=== PATIENT | male | born 1985 | race Caucasian/White ===

== ENCOUNTER 2016-06-03 23:18 | Inpatient (IN) | payer OTHER ==
--- NOTE | ~2016-06-03 | PA ---
Unit #: [id number] #: [id number] Patient: DAVID JOHNSON [id number] [facility] [place] [address] [id number] I MR#: [id number] NAME: DAVID JOHNSON. ROOM: P211 Age: 30 Sex: M Admission Date: 06/03/2016 : 1985 Date of Assessment: 06/04/2016 Attending Physician: Gumaro Turcios M.D. Admitting Physician: Gumaro Turcios M.D. Primary Care Physician: Primary Care Physician No PSYCHIATRIC ASSESSMENT LOCATION [facility], [address] [address], room #211, bed #1. DATE OF SERVICE 06/04/2016. INFORMANT The patient and chart seems more reliable than patient at this point because of the patient's sedation. HISTORY OF PRESENT ILLNESS This is a 30-year-old white male who has a longstanding history of daily opiate, heroin, and benzodiazepine abuse. He reports using 1 to 2 g of IV heroin a day as well as 8 mg of Xanax a day every day for at least last 4 years. The patient has been through multiple treatment programs with moderate withdrawal symptoms. He denied any acute mood issues right now, but he said he reports feeling very fatigue, tired, headache, aches, and pains and beyond that was of little more aid he noted on several times during the conversation, I had to be physically shaken to awaken. He was pleasant though despite all this, the patient reports he is motivated for treatment at this time, but was limited as overall capacity to cooperate. PAST PSYCHIATRIC HISTORY According to the patient, he has never been treated for any mood disorders or any thing of natures. Never been on psychiatric medications, has no history of SI, HI, or psychosis lately. FAMILY HISTORY The patient denied anything of consequence. SOCIAL HISTORY The patient was limited in his cooperation, was unclear about support network, current outstanding living situation or employment. MEDICAL HISTORY The patient denied anything of consequence. MEDICATION HISTORY The patient is not on any home medications. ALLERGIES Included no known drug allergies. Unit #: [id number] #: [id number] Patient: DAVID JOHNSON SUBSTANCE ABUSE HISTORY As noted above with various psychiatric treatment as noted. It is unclear about accuracy of report or other potential substances given the patient's limited ability to cooperate at this time. MENTAL STATUS EXAMINATION General appearance is a limitedly groomed, bearded white male who appeared much older than stated age, moderate cooperation, responsiveness at best. Speech was clear and coherent with prosody. Mood was sedated with a congruent affect. Thought process and content were grossly organized and linear, but limited overall capacity to be evaluated. No active SI, HI, or psychosis. The patient's memory was grossly intact, although evaluation was limited. He was alert and oriented x4. Cognitive function seems to be at baseline and sedated, associations being normal. Insight and judgment were poor regarding his substance abuse. ASSETS Include previous exposure to CD treatment Liabilities; uncertainty about an appointment support network; and continued substance abuse. ADMITTING DIAGNOSES 1. Opiate dependency with withdrawal. 2. Sedative hypnotic dependency with withdrawal. PSYCHIATRIC PLAN To continue the patient's admission in a safe controlled environment for detox from both opiates and benzodiazepine. Detox protocol was in place for both as well as standard p.r.n. with labs all of which are still pending. With treatment goal being resolution of the symptoms in a safe and controlled environment, discharge planning most likely including community resources once the patient is appropriate. Dictated by... Jena Alvarado/reyes TD: 06/04/2016 15:48 JOB #: [id number] PSYCHIATRIC ASSESSMENT Page 1 of 1 X Gumaro Turcios MD X PSYCHIATRIC ASSESSMENT
--- NOTE | ~2016-06-03 | PN ---
Unit #: [id number] #: [id number] Patient: DAVDI JOHNSON [id number] [facility] [address] [place] [address] [id number] I MR#: [id number] NAME: DAVID JOHNSON. ROOM: P211 Age: 30 Sex: M Admission Date: 06/03/2016 : 1985 Attending Physician: Gumaro Turcios M.D. Admitting Physician: Gumaro Turcios M.D. Primary Care Physician: Primary Care Physician No YOSEF PROGRESS NOTES DATE 06/05/2016 SUBJECTIVE UPDATE This is a 30-year-old male here with issues of ongoing significant detox including issues with opiates and benzodiazepine abuse. Today, patient reports feeling somewhat better. He is still noticing issues with sleep disturbance, some anxiety, depression, aches, pains, especially restlessness in his legs and twitching and discomfort there, some GI discomfort. Tremors were better today with less diaphoresis. Overall, patient's vital signs look stable at the moment with treatment. MENTAL STATUS EXAMINATION General appearance, limitedly groomed white male appears older than stated age fairly cooperative, responsive to interview process. Speech is clear and coherent with normal prosody. Mood is "not great" with a congruent affect. Thought process and content are grossly organized, and liner. No overt psychosis, no SI, no HI reported at this time. Patient's memory was grossly intact. Associations were normal. Cognitive functioning was at baseline. He is alert and oriented times four. Insight and judgement seems to be limited but improving. RECOMMENDATIONS Will continue patient's admission for safety and stabilization for ongoing issues with detox from benzodiazepines and opiates and will replace patient's trazodone at bedtime with Seroquel 50 mg to help with sleep and mood issues in a cathartic manner than trazodone has been able to provide. Patient still needs further stabilization from the detox process and will monitor for symptoms progress from those noted above. Dictated by... Gumaro Turcios M.D. IVONNE/tiarra TD: 06/06/2016 18:40 JOB #: [id number] Unit #: [id number] #: [id number] Patient: DAVID JOHNSON PROGRESS NOTES Page 1 of 1 X Gumaro Turcios MD PROGRESS NOTE
--- NOTE | ~2016-06-03 | PN ---
Unit #: [id number] #: [id number] Patient: DAVID JOHNSON [id number] [place] [address] [id number] I MR#: [id number] NAME: DAVID JOHNSON. ROOM: P211 Age: 30 Sex: M Admission Date: 06/03/2016 : 1985 Attending Physician: Gumaro Turcios M.D. Admitting Physician: Gumaro Turcios M.D. Primary Care Physician: Primary Care Physician No [facility] PROGRESS NOTES DATE OF SERVICE: 06/06/2016 LOCATION [facility], [address] [place] [address], room #211, bed #1. SUBJECTIVE This is a 30-year-old male who is here with ongoing issues of detox. The patient complains feeling somewhat better today, but reported very poor night sleep, even with change to Seroquel, tossing and turning, leg pains, cramps, some anxiety. He reports tremors and GI disturbances are much improved. No active SI. MENTAL STATUS EXAMINATION General appearance was so limitedly groomed white male, older than stated age, fairly pleasant, cooperative with good eye contact. Speech was clear and coherent with prosody. Mood was "somewhat better" with a congruent affect. Thought process and content are grossly organized and linear. No overt evidence of psychosis. No active SI or HI at this time. The patient's memory was grossly intact. Associations were normal. Cognitive function was at baseline. Insight and judgment are improving. RECOMMENDATIONS The patient with plan of continuing admission for safety and stabilization for resolving detox issues. Overall, the patient making good progress. We will continue to monitor to maximize treatment plan with increase in Seroquel at night to 150 mg to better help with sleep and residual mood symptoms, most likely discharge in the morning. The patient's progress continues symptoms as noted above. Vital signs appear to be stabilizing well per staff and chart. Dictated by... Gumaro Turcios M.D. SB/modl TD: 06/06/2016 11:28 JOB #: [id number] Unit #: [id number] #: [id number] Patient: DAVID JOHNSON [facility] PROGRESS NOTES Page 1 of 1 X Gumaro Turcios MD PROGRESS NOTE
--- NOTE | ~2016-06-03 | HP ---
Unit #: [id number] #: [id number] Patient: DAVID JOHNSON [id number] [place] [address] [id number] I MR#: [id number] NAME: DAVID JOHNSON. ROOM: P211 Age: 30 Sex: M Admission Date: 06/03/2016 : 1985 Attending Physician: Gumaro Turcios M.D. Admitting Physician: Gumaro Turcios M.D. Primary Care Physician: Primary Care Physician No HISTORY AND PHYSICAL HISTORY OF PRESENT ILLNESS David is a 30 year old admitted to [address] [place] [address] because of his drug use. He shoots heroin. PAST MEDICAL HISTORY 1. Long history of opioid abuse to include IV heroin. 2. Hepatitis C. PAST SURGICAL HISTORY Nothing reported. ALLERGIES No known drug allergies. SOCIAL HISTORY Smokes one pack per day. Denies alcohol. Admits to a long history of opioid abuse to include IV heroin. FAMILY HISTORY Medically noncontributory. REVIEW OF SYSTEMS CONSTITUTIONAL: No fever or chills. HEENT: Denies any sore throat, ear pain or runny nose. CARDIOVASCULAR: Denies chest pain, irregular heart rhythm or palpitations. CHEST: Denies shortness of breath or cough. No hemoptysis. GASTROINTESTINAL: Denies nausea, vomiting, diarrhea or chronic constipation. ENDOCRINE: Denies history of increased thirst or urination. No recent significant weight loss or gain. GENITOURINARY: Denies dysuria, frequency, or hematuria. SKIN: He reports he had an I & D of an IV drug abscess about three days ago in a local emergency room. He has been on Cleocin 300 mg p.o. t.i.d. for the past three days. HEMATOLOGIC: Denies history of increased bleeding or bruising. MUSCULOSKELETAL: Denies any hot, swollen joints. No generalized muscle pain. NEUROLOGIC: Denies problems with vision or speech. No frequent, severe headaches. No numbness, tingling or weakness in any extremities. Denies loss of bladder or bowel control. CURRENT MEDICATIONS Unit #: [id number] #: [id number] Patient: DAVID JOHNSON Detox protocol PHYSICAL EXAMINATION GENERAL: Alert, well-nourished, in no apparent distress. VITAL SIGNS: Blood pressure 110/46, heart rate 80, respirations 16, temperature 98.6. WEIGHT: 157 pounds. HEIGHT: 5'7". SKIN: Warm and dry without rash or lesion. He has a small scabbed area along the right AC. There is no increased redness, swelling, heat or pus noted. HEENT: Normocephalic. TMs not viewed. Oral and nasal passages clear. Conjunctivae clear. Pupils equal, round and reactive to light and accommodation. Extraocular movements intact. NECK: Supple without lymphadenopathy or thyromegaly. HEART: Regular rate and rhythm without murmur. LUNGS: Clear. ABDOMEN: Soft, nontender. : Not done. EXTREMITIES: No evidence of cyanosis, clubbing or edema. Moves all extremities without focal deficit. NEUROLOGICAL: Grossly within normal limits. Cranial Nerves: II: Visual cardona are intact. III, IV AND : Extraocular movements are intact. Pupils are equal, round and reactive to light. V: Facial sensation is grossly normal. VII: Facial movements and expression are normal. VIII: Auditory acuity grossly intact. IX, X: Uvula is midline. Phonation is normal. XI: Patient shrugs shoulders and turns head normally. XII: Tongue protrudes in the midline. Sensory and Motor Function: Sensory and motor sensation is grossly normal. Motor: moves all extremities well. Coordination: Gait is normal. Deep Tendon Reflexes: Intact. IMPRESSION 1. Psychiatric admission 2. Long history of IV drug use 3. Healing IV drug abscess RECOMMENDATIONS PSYCHIATRIC: Per psychiatrist. MEDICAL: 1. I see no contraindications to participating in facility's activities. 2. Continue Cleocin. 3. Detox per protocol. MEDICAL PROGNOSIS Good. MEDICAL CONDITION Stable. Dictated by... Tawanna Saldivar P.A.-C. for Unit #: [id number] #: [id number] Patient: DAVID JOHNSON Jena Ku/lauren TD: 06/04/2016 21:41 JOB #: [id number] HISTORY AND PHYSICAL Page 1 of 1 X Tawanna Saldivar HISTORY AND PHYSICAL
--- NOTE | ~2016-06-03 | DS ---
Unit #: [id number] #: [id number] Patient: DAVID JOHNSON [id number] [place] [address] [id number] I MR#: [id number] NAME: DAVID JOHNSON. ROOM: P211 Age: 30 Sex: M Admission Date: 06/03/2016 : 1985 Discharge Date: 06/07/2016 Attending Physician: Gumaro Turcios M.D. Primary Care Physician: Primary Care Physician No DISCHARGE SUMMARY REASON FOR ADMISSION Opiate and sedative-hypnotic dependency with withdrawal. DIAGNOSTIC STUDIES PERTINENT LABORATORY DATA: The patient had routine blood work done which included a CMP that is within normal parameters except for albumin slightly low at 3.2 and ALT slightly elevated at 43, otherwise is normal. CBC showed a hemoglobin at 12.8, MCV is 39.8, MCH 26.1, otherwise within acceptable parameters. RPR was nonreactive. Tox screen upon admission was positive for amphetamines and marijuana. Toxicology showed 1+ urobilinogen, was otherwise negative with URBC as high (1) __ 300, otherwise negative. No culture. HOSPITAL COURSE The patient was admitted for safety and stabilization for ongoing issues with opiates and sedative hypnotic dependency. The patient was placed on appropriate detox for both. Over the course of hospitalization, the patient went through typical symptoms of withdrawal including sleep disturbance, depression, anxiety, aches, pains, GI disturbance, headaches, and tremors, especially restless leg, and twitching. The patient was originally given trazodone for sleep, but it was not effective, so he was switched over to Seroquel, and it was increased to 100 mg at nighttime to help with this issue. He did well with it. At the time of discharge, the patient was denying any overt symptoms of detox. His mood was improved. There were never any active issues with SI or HI. He was much more bright and appropriate. Otherwise remains rather isolative to himself most of the hospitalization. The patient was seen by medicine service while he was here. No changes made from their standpoint. The patient has a status post drained abscess on his arm but it is still healing and has stitches in it. The patient had no complains and had no issues with dressing. It is felt the patient can follow up with an outpatient provider in his home area for evaluation when appropriate. No additional medications were changed. At the time of discharge, it was felt the patient had reached maximum benefit from admission and was ready for discharge. DISCHARGE DIAGNOSES 1. Opiate dependency with withdrawal. 2. Sedative-hypnotic dependency with withdrawal. DISCHARGE MEDICATIONS None. CONDITION AT DISCHARGE Unit #: [id number] #: [id number] Patient: DAVID JOHNSON Improved. PROGNOSIS Moderate at best given longstanding history of substance abuse and recidivism. DISCHARGE DIET Regular. DISCHARGE ACTIVITY As tolerated with sobriety encouraged. Followup care will be through the patient going home family to [place], following (2) __ resources there as well as AA and NA. The patient was offered residential options from here to other facilities, and he declined due to outstanding legal court appointments that are coming up soon that he needed to be present for. Information will still be provided to him should he be able to follow up with those programs following his court hearings. Dictated by... Gumaro Turcios M.D. IVONNE/chevy TD: 06/07/2016 09:48 JOB #: [id number] DISCHARGE SUMMARY Page 1 of 1 X Gumaro Turcios MD X DISCHARGE SUMMARY
[2016-06-04 09:46] LABS: URINE APPEARANCE CLEAR; URINE BILIRUBIN NEG (NEG); URINE BLOOD NEG (NEG); URINE COLOR YELLOW; URINE GLUCOSE NEG (NEG); URINE KETONE NEG (NEG); URINE LEUKOCYTE ESTERASE NEG (NEG); URINE NITRATE NEG (NEG); URINE PROTEIN NEG (NEG); URINE SPECIFIC GRAVITY 1.005 (1.003-1.035)
[2016-06-04 10:01] LABS: AMPHETAMINE POS (NEG); BARBITURATES NEG (NEG); BENZODIAZEPINES NEG (NEG); COCAINE NEG (NEG); MARIJUANA POS (NEG); OPIATES NEG (NEG); TRICYCLIC ANTIDEPRESSANTS NEG (NEG); U METHADONE NEG (NEG)
[2016-06-05 09:55] LABS: BASOPHIL# 0.1 X10e3 (0-0.3); BASOPHIL% 0.9 % (0-2.5); EOSINOPHIL# 0.2 X10e3 (0-0.7); EOSINOPHIL% 1.5 % (0.0-7.0); HEMATOCRIT 39.1 % (38.0-50.0); HEMOGLOBIN 12.8 gm/dL (13.0-16.0); LYMPHOCYTE# 6.3 X10e3 (1.0-3.5); LYMPHOCYTE% 62.3 % (17.0-45.0); MEAN CELL VOLUME 79.8 FL (83-96); MEAN CORPUSCULAR HEMOGLOBIN 26.1 PG (28-34); MEAN CORPUSCULAR HGB CONC 32.7 g/dL (30-36); MEAN PLATELET VOLUME 7.1 FL (6.5-11.5); MONOCYTE# 0.6 X10e3 (0-1.0); MONOCYTE% 6.2 % (3.0-12.0); NEUTROPHIL% 29.1 % (40-75); PLATELET COUNT 364 X10e3 (140-420); RED CELL DISTRIBUTION WIDTH 14.5 % (11.0-15.5); WHITE BLOOD COUNT 10.2 X10e3 (4.0-10.5)
[2016-06-05 09:59] LABS: DIFF IND YES
[2016-06-05 10:04] LABS: ALBUMIN SERUM 3.2 g/dL (3.5-5.0); BILIRUBIN,TOTAL 0.6 mg/dL (0.2-2.0); BUN/CREATININE RATIO 11.11; CREATININE SERUM 0.9 mg/dL (0.6-1.4); GLOM FILT RATE Estimated 115.8 mL/min (>60); POTASSIUM 4.5 mmol/L (3.5-5.1); PROTEIN TOTAL SERUM 7.1 g/dL (6.0-8.3)
[2016-06-05 11:37] LABS: ANISOCYTOSIS SL; PLATELET ESTIMATE NORMAL (NORMAL); POIKILOCYTOSIS SL; RBC NORMAL YES
== END 2016-06-07 11:22 | DRG 897 ==
LOC: P2S 23:18
PROVIDERS: Psychiatry & Neurology Psychiatry
PROC: HZ2ZZZZ Detoxification Services for Substance Abuse Treatment (ICD-10-PCS; principal; 2016-06-03)
DX: F11.23 Opioid dependence with withdrawal (principal); F13.230 Sedative, hypnotic or anxiolytic dependence with withdrawal, uncomplicated
CPT/HCPCS: 80053; 80307; 81003; 85025; 86592